=== PATIENT | female | born 1985 | race Asian ===

== ENCOUNTER 2023-05-06 13:10 | Observation (INO) | payer BC, SELFPAY ==
[2023-05-06] VITALS (11 sets, daily range): BP systolic 96–120; BP diastolic 53–71; PULSE 87–116; RESP 16–20; TEMP 37–38.6; O2SAT 98–100; BMI 26.3
--- NOTE | 2023-05-06 13:42 | ED_ITS ---
HPI - General Adult General Chief complaint: Urogenital-Female Stated complaint: needs antibiotics IV, sent by provider Time Seen by Provider: 05/06/23 13:15 Source: patient Mode of arrival: Family Vehicle History of Present Illness HPI narrative: 38-year-old female former smoker without chronic medical history presents at the request of an outside urgent care for evaluation of UTI with sepsis. She had presented to them yesterday with fever, chills, back pain and a few days of urinary complaints including dysuria, frequency and urgency. She was found to have a UTI and was given a single dose of Rocephin intramuscular and given a p rescription for Cipro and has taken now 3 doses of the Cipro. She continues to be febrile with chills and presented again to the same clinic. Soon after their initial evaluation she was referred here for further evaluation. She denies dizziness, weakness, or lightheadedness. She Related Data Allergies Allergy/AdvReac Type Severity Reaction Status Date / Time No Known Drug Allergies Allergy Verified 05/06/23 13:44 Review of Systems Review of Systems Narrative: GENERAL: See HPI HEENT: Denies sinus pain, ear pain, sore throat, difficulty swallowing, dizziness. RESPIRATORY: Denies dyspnea, cough, wheezing, hemoptysis, sputum. CARDIOVASCULAR: Denies chest pain, palpitations, orthopnea, edema, GASTROINTESTINAL: Denies nausea, vomiting, abdominal pain, diarrhea, constipation, melena. : See HPI MUSCULOSKELETAL: denies weakness, joint pain, or bony pain SKIN: Denies rash, skin lesions, or other NEUROLOGIC: Denies weakness, headache, numbness, change in speech, confusion, seizures, incoordination. PSYCHIATRIC: No concerning psychosocial issues. 12 point review of systems is negative except for those stated above Patient History Social History Smoking Status: Former smoker Smoking Status: Former smoker tobacco type: cigarettes and vaping Substance Use Type: does not use Exam Narrative Exam Narrative: GENERAL: 37[] year old patient appears stated age. Well-developed patient, in mild distress. Appears unwell HEAD: Atraumatic. Normocephalic. EYES: Pupils equal round and reactive. Extraocular motions intact. No scleral icterus. No injection or drainage. ENT: Nose without bleeding, purulent drainage. Throat without erythema, tonsillar hypertrophy or exudate. Airway patent. NECK: Trachea midline. Non tender CARDIOVASCULAR: Tachycardic but regular rhythm without murmurs, gallops, or rubs. RESPIRATORY: Clear to auscultation. Breath sounds equal bilaterally. No wheezes, rales, or rhonchi. GASTROINTESTINAL: Abdomen soft, non-tender, nondistended. Specifically no epigastric or right upper quadrant pain EXTREMITIES: No edema or joint tenderness. BACK: Nontender without deformity or crepitance. Right CVA tenderness. NEURO: AOx3. SKIN: No rash or erythema of visible areas Initial Vital Signs Initial Vital Signs: Vital Signs Temperature 101.5 F H 05/06/23 13:20 Pulse Rate 116 H 05/06/23 13:20 Respiratory Rate 20 05/06/23 13:20 Blood Pressure 120/65 05/06/23 13:20 Pulse Oximetry 100 05/06/23 13:20 Oxygen Delivery Method Room Air 05/06/23 13:20 Course Orders Ordered: ED Orders 05/06/23 13:46 Urine Microscopic Stat 05/06/23 14:02 Complete Blood Count AUTO DIFF Stat Comprehensive Metabolic Panel Stat Lactate (Lactic Acid) Stat Magnesium Stat Procalcitonin Stat 05/06/23 14:07 Blood Culture Stat 05/06/23 14:21 COVID19 -Nasal RAPID Stat 05/06/23 14:49 US abdomen limited Stat 05/06/23 15:14 CT kidney ureter bladder (KUB) Stat POTASSIUM CHLORIDE IN WATER (Potassium Cl 10 Meq/100 Ml Meenakshi) 10 meq in 100 mls @ 100 mls/hr IV Q1H COUNTS INCLUDE 234 BEDS AT THE [facility] Stop: 05/06/23 18:59 Last Admin: 05/06/23 16:10 Dose: 100 mls/hr Documented By: Infusion: 05/06/23 16:03 Dose: 100 mls/hr Documented By: Admin: 05/06/23 15:03 Dose: 100 mls/hr Documented By: ST Discontinued Medications Ceftriaxone Sodium 2,000 mg/ (Sodium Chloride) 100 mls @ 200 mls/hr IV NOW ONE Stop: 05/06/23 13:18 Last Infusion: 05/06/23 16:38 Dose: 0 mls/hr Documented By: Admin: 05/06/23 15:56 Dose: 200 mls/hr Documented By: ST Sodium Chloride (Normal Saline 0.9%) 1,959.51 mls @ 653.17 mls/hr 30 ml/kg infuse over 3 hr (1959.51 ml) IV NOW ONE Stop: 05/06/23 16:41 Last Admin: 05/06/23 14:11 Dose: 653.17 mls/hr Documented By: Ondansetron HCl (Ondansetron 4 Mg/2 Ml Inj) 4 mg IV NOW ONE Stop: 05/06/23 14:31 Last Admin: 05/06/23 15:01 Dose: 4 mg Documented By: Consultations Consultation #1: Hospitalist happy to accept Vital Signs Vital signs: Vital Signs - 8 hr 05/06/23 13:20 05/06/23 16:04 05/06/23 16:04 Temperature 101.5 F H Pulse Rate 116 H 102 H Respiratory Rate 20 Blood Pressure 120/65 110/67 Pulse Oximetry 100 98 Oxygen Delivery Method Room Air 05/06/23 14:30 05/06/23 15:00 05/06/23 15:30 Temperature Pulse Rate 105 H 98 H 100 H Respiratory Rate 16 16 16 Blood Pressure 101/53 L 96/55 L 100/55 L Pulse Oximetry 98 Oxygen Delivery Method Room Air Room Air Room Air 05/06/23 16:05 05/06/23 16:30 05/06/23 16:30 Temperature Pulse Rate 101 H 97 H Respiratory Rate Blood Pressure 110/67 104/64 Pulse Oximetry 98 Oxygen Delivery Method Room Air Medical Decision Making Lab Data 05/06/23 14:02 05/06/23 14:02 Labs: Lab Results 05/06/23 05/06/23 05/06/23 Range/Units 13:46 14:02 14:02 WBC 15.0 H (4.5-11.0) X10^3/uL RBC 3.97 L (4.0-5.2) X10^6/uL Hgb 11.5 L (12.0-16.0) g/dL Hct 34.3 L (36-46) % MCV 86.3 (80-100) fL MCH 28.9 (26-34) PG MCHC 33.5 (30-36) % RDW 12.9 (11.6-14.8) % Plt Count 258 (150-400) X10^3/uL Neut % (Auto) 80.4 H (50-75) % Lymph % (Auto) 11.4 L (25-40) % [place] % (Auto) 8.0 (3-14) % Eos % (Auto) 0.0 L (2-4) % Baso % (Auto) 0.2 (0-2) % Neut # (Auto) 78839 H (2548-7426) /uL Lymph # (Auto) 1700 (5046-8335) /uL [place] # (Auto) 1200 H (0-900) /uL Eos # (Auto) 0 (0-450) /uL Baso # (Auto) 0 (0-100) /uL Sodium 134 L (137-145) mmol/L Potassium 3.2 L (3.4-5.1) mmol/L Chloride 99 (98-107) mmol/L Carbon Dioxide 25 (22-32) mmol/L BUN 4 L (7-17) mg/dL Creatinine 0.65 (0.52-1.04) mg/dL Estimated GFR > 60 (>60) mL/min BUN/Creatinine Ratio 6.2 (6-22) Glucose 104 H (70-100) mg/dL Lactate (0.7-2.1) mmol/L Calcium 8.4 (8.4-10.2) mg/dL Magnesium 2.0 (1.6-2.3) mg/dL Total Bilirubin 1.0 (0.2-1.3) mg/dL AST 72 H (14-36) IU/L ALT 96 H (<35) IU/L Alkaline Phosphatase 164 H (38-126) U/L Total Protein 8.4 H (6.3-8.2) g/dL Albumin 4.0 (3.5-5.0) g/dL Globulin 4.4 H (1.7-4.1) g/dL Albumin/Globulin Ratio 0.9 L (1.0-2.8) Procalcitonin (<0.5) ng/mL Urine RBC 1-5/hpf (0-5/HPF) Urine WBC 1-5/hpf (0-5/HPF) Ur Squamous Epith Cells 1-5 /hpf (0-5/HPF) Urine Bacteria None seen (None) Ur Culture Indicated? Cult not indicated SARS-CoV-2 (PCR) (Negative) 05/06/23 05/06/23 05/06/23 Range/Units 14:02 14:02 14:21 WBC (4.5-11.0) X10^3/uL RBC (4.0-5.2) X10^6/uL Hgb (12.0-16.0) g/dL Hct (36-46) % MCV (80-100) fL MCH (26-34) PG MCHC (30-36) % RDW (11.6-14.8) % Plt Count (150-400) X10^3/uL Neut % (Auto) (50-75) % Lymph % (Auto) (25-40) % [place] % (Auto) (3-14) % Eos % (Auto) (2-4) % Baso % (Auto) (0-2) % Neut # (Auto) (7318-0519) /uL Lymph # (Auto) (4980-3226) /uL [place] # (Auto) (0-900) /uL Eos # (Auto) (0-450) /uL Baso # (Auto) (0-100) /uL Sodium (137-145) mmol/L Potassium (3.4-5.1) mmol/L Chloride (98-107) mmol/L Carbon Dioxide (22-32) mmol/L BUN (7-17) mg/dL Creatinine (0.52-1.04) mg/dL Estimated GFR (>60) mL/min BUN/Creatinine Ratio (6-22) Glucose (70-100) mg/dL Lactate 0.9 (0.7-2.1) mmol/L Calcium (8.4-10.2) mg/dL Magnesium (1.6-2.3) mg/dL Total Bilirubin (0.2-1.3) mg/dL AST (14-36) IU/L ALT (<35) IU/L Alkaline Phosphatase (38-126) U/L Total Protein (6.3-8.2) g/dL Albumin (3.5-5.0) g/dL Globulin (1.7-4.1) g/dL Albumin/Globulin Ratio (1.0-2.8) Procalcitonin 1.96 H (<0.5) ng/mL Urine RBC (0-5/HPF) Urine WBC (0-5/HPF) Ur Squamous Epith Cells (0-5/HPF) Urine Bacteria (None) Ur Culture Indicated? SARS-CoV-2 (PCR) Negative (Negative) Point of Care Testing Test Results Negative Urine Dip Bedside Urine Glucose Negative Bedside Urine Bilirubin - Negative Bedside Urine Ketone - Negative Urine Specific [employer] 1.000 Bedside Urine Occult Blood ++ Bedside Urine pH 6.5 Bedside Urine Protein - Negative Bedside Urine Urobilinogen - Negative Bedside Urine Nitrite - Negative Bedside Urine Leukocytes - Negative Esterase Point of care testing: Point of Care Testing Test Results Negative Urine Dip Bedside Urine Glucose Negative Bedside Urine Bilirubin - Negative Bedside Urine Ketone - Negative Urine Specific [employer] 1.000 Bedside Urine Occult Blood ++ Bedside Urine pH 6.5 Bedside Urine Protein - Negative Bedside Urine Urobilinogen - Negative Bedside Urine Nitrite - Negative Bedside Urine Leukocytes - Negative Esterase MDM Narrative Medical decision making narrative: 38-year-old female presents with fever, chills, tachycardia and recent urinary symptoms. At an outside facility she was found to have a UTI and has had Rocephin IM and 3 doses of oral Cipro and referred to us for further treatment.SHe arrives meeting septic criteria and has cultures, lactate obtained, IV fluids and rocephin given. Discussed with hospitalist and we agreed to perform imaging to rule out an obstructive uropathy or other finding that would complicate or change the course. Imaging demonstrates evidence of pyelonephritis and no obstruction. Patient requires hospitalization for further treatment and stabilization Discharge Plan Departure Patient Disposition: Admitted As Inpatient Clinical Impression: Sepsis, Pyelonephritis Admit Date/Time: 05/06/23 16:44 Admit Provider: Fredis Saldivar
[2023-05-06] MEDS: SODIUM CHLORIDE 0.9% 653.17 ML IV (14:11)
[2023-05-06 14:14] LABS: Bacteria Urine None Seen; Culture Indicated Urine Cult Not Indicated; RBC Urine 1-5/HPF (0-5/HPF); Squamous Epithelial Cell Urine 1-5 /HPF (0-5/HPF); WBC Urine 1-5/HPF (0-5/HPF)
[2023-05-06 14:20] LABS: Add Manual Diff / Slide Review NO; Basophils Absolute Auto 0 /uL (0-100); Basophils Percent Auto 0.2 % (0-2); Eosinophils Absolute Auto 0 /uL (0-450); Hematocrit 34.3 % (36-46); Hemoglobin 11.5 g/dL (12.0-16.0); Lymphocytes Absolute Auto 1700 /uL (1100-4500); Lymphocytes Percent Auto 11.4 % (25-40); Mean Corpuscular HGB Conc 33.5 % (30-36); Mean Corpuscular Hemoglobin 28.9 PG (26-34); Mean Corpuscular Volume 86.3 fL (80-100); Monocytes Absolute Auto 1200 /uL (0-900); Neutrophils Absolute Auto 12100 /uL (1500-7000); Neutrophils Percent Auto 80.4 % (50-75); Platelet Count 258 X10^3/uL (150-400); Red Blood Cell Count 3.97 X10^6/uL (4.0-5.2); Red Cell Distribution Width 12.9 % (11.6-14.8)
--- NOTE | 2023-05-06 14:30 | PC.NURSE ---
Pt c/o malaise, weakness, nausea, and fever. Denies dysuria, hematuria, flank pain, or other symptoms.
[2023-05-06 14:41] LABS: Lactate (Lactic Acid) 0.9 mmol/L (0.7-2.1)
[2023-05-06 14:42] LABS: Alanine Aminotransferase 96 IU/L (<35); Albumin Globulin Ratio 0.9 (1.0-2.8); Alkaline Phosphatase 164 U/L (38-126); Aspartate Aminotransferase 72 IU/L (14-36); BUN Creatinine Ratio 6.2 (6-22); Blood Urea Nitrogen 4 mg/dL (7-17); Calcium 8.4 mg/dL (8.4-10.2); Carbon Dioxide 25 mmol/L (22-32); Chloride 99 mmol/L (98-107); Estimated Glomerular Filt Rate > 60 mL/min (>60); Globulin 4.4 g/dL (1.7-4.1); Glucose 104 mg/dL (70-100); HEMOLYSIS < 15 (0-50); Potassium 3.2 mmol/L (3.4-5.1); Sodium 134 mmol/L (137-145); Total Protein 8.4 g/dL (6.3-8.2)
[2023-05-06 15:00] LABS: Procalcitonin 1.96 ng/mL (<0.5)
[2023-05-06] MEDS: ONDANSETRON 4 MG/2 ML INJ IV (15:01)
[2023-05-06] MEDS: POTASSIUM CHLORIDE IN WATER 10 MEQ/100 ML PIGGYBACK 100 MEQ IV ×3 (15:03→18:39)
--- NOTE | 2023-05-06 15:14 | DI.CT.S_ITS ---
PROCEDURE: CT KIDNEY URETER BLADDER (KUB) INDICATIONS: urosepsis, flank pain, obstructing stone? TECHNIQUE: Axial sections were acquired from the lung bases to the pubic symphysis. Coronal and sagittal reformats were performed. For radiation dose reduction, the following was used: automated exposure control, adjustment of mA and/or kV according to patient size. COMPARISON: None. FINDINGS: Image quality: Excellent. Lung bases: Unremarkable. Heart: No significant findings. URINARY: Right Kidney: Right-sided perinephric fat stranding is seen. There is mild right-sided hydronephrosis. No nonobstructing right-sided kidney stones are seen. Right Ureter: There is mild right hydroureter. Left Kidney: No stones or hydronephrosis. Left Ureter: No hydroureter. Bladder: Normal wall thickness. No stones. ABDOMEN: Liver: Unremarkable. Gallbladder: Unremarkable. Biliary ducts: Unremarkable. Pancreas: Unremarkable. Spleen: Unremarkable. Adrenal Glands: Unremarkable. Stomach and Bowel: Stomach, small bowel loops, and colon are unremarkable. A normal appendix is noted. Peritoneum: No abnormal intraperitoneal fluid. No free air. Ventral Wall: No hernia. Abdominal Nodes: No enlarged retroperitoneal or mesenteric lymph nodes. Vessels: Aorta and inferior vena cava are normal in size. PELVIS: Pelvic Organs: The uterus appears normal for age. No adnexal masses are seen. The IUD is seen at its expected location. Pelvic Nodes: Unremarkable. Miscellaneous: No inguinal hernias are seen. Bones: Unremarkable. IMPRESSION: Right-sided hydronephrosis and hydroureter, with perinephric fat stranding. No kidney stones or ureteral stones are seen. These imaging findings are highly suspicious for right-sided pyelonephritis. Additional findings: Normal appendix IUD Dictated by: Luis Miguel Tolliver M.D. on 05/06/2023 at 15:18 Approved by: Luis Miguel Tolliver M.D. on 05/06/2023 at 15:20
[2023-05-06] MEDS: cefTRIAXone 2,000 MG in SODIUM CHLORIDE 0.9% 100 ML 200 MG IV (15:56)
[2023-05-06 16:04] LABS: COVID19 -Nasal RAPID Negative (Negative)
--- NOTE | 2023-05-06 17:03 | PC.NURSE ---
Called report to [facility]. Pt A&Ox4 on transfer
[2023-05-06] MEDS: SODIUM CHLORIDE 0.9% 1,000 ML 100 ML IV (18:40)
--- NOTE | 2023-05-06 18:40 | PM.HP.1 ---
History of Present Illness History of Present Illness Date Patient Seen: 05/06/23 Time Patient Seen: 17:30 Chief complaint: needs antibiotics IV, sent by provider Narrative: Melly Marshall is a 38-year-old female with past medical history of anxiety, previous UTIs and former smoker who presents with fevers, right flank pain and dysuria. Patient states her symptoms started about 2 weeks ago and continued to worsen. Was seen in where a UA showed gross pyuria consistent with UTI. Urine cutlure growing >100k GNR. Was given IM dose of rocephin and sent to the ED. Patient found to be septic with leukocytosis, tachycardia, and tachypnea. CT KUB showed right-sided pyelonephritis with perinephric fat stranding and hydronephrosis. No kidney stones. She currently is feeling a bit better with less chills and flank pain. Denies SOB, CP, abd pain or diarrhea. [facility] Social History household members: family Smoking Status: Former smoker alcohol intake: never Meds Home Medications and Allergies Allergies Allergy/AdvReac Type Severity Reaction Status Date / Time No Known Drug Allergies Allergy Verified 05/06/23 13:44 Review of Systems Review of Systems Narrative: All other systems reviewed with the patient and are negative unless otherwise stated. Exam Vital Signs (past 8 hours): - 05/06/23 13:20 05/06/23 16:04 05/06/23 16:04 Temperature 101.5 F H Pulse Rate 116 H 102 H Respiratory Rate 20 Blood Pressure 120/65 110/67 Pulse Oximetry 100 98 Oxygen Delivery Method Room Air Oxygen Flow Rate 05/06/23 14:30 05/06/23 15:00 05/06/23 15:30 Temperature Pulse Rate 105 H 98 H 100 H Respiratory Rate 16 16 16 Blood Pressure 101/53 L 96/55 L 100/55 L Pulse Oximetry 98 Oxygen Delivery Method Room Air Room Air Room Air Oxygen Flow Rate 05/06/23 16:05 05/06/23 16:30 05/06/23 16:30 Temperature Pulse Rate 101 H 97 H Respiratory Rate Blood Pressure 110/67 104/64 Pulse Oximetry 98 Oxygen Delivery Method Room Air Oxygen Flow Rate 05/06/23 17:00 05/06/23 17:00 05/06/23 17:11 Temperature 101.0 F H Pulse Rate 96 H Respiratory Rate 16 Blood Pressure 107/71 Pulse Oximetry 99 Oxygen Delivery Method Oxygen Flow Rate 05/06/23 17:12 Temperature 99.3 F Pulse Rate 100 H Respiratory Rate 18 Blood Pressure 107/69 Pulse Oximetry 99 Oxygen Delivery Method Oxygen Flow Rate 0 Oxygen Delivery Method Room Air Oxygen Flow Rate 0 Narrative Exam Narrative: GEN: ill-appearing female in no acute distress HEENT: moist mucous membranes, PERRL NECK: trachea midline, no JVD CV: tachycardic, regular rhythm, no murmurs PULM: clear bilaterally ABD: right-sided flank pain, abd non-tender, nondistended, no organomegaly EXT: warm and well perfused with no edema NEURO: awake, alert, oriented, no focal deficits Objective Labs 05/06/23 14:02 05/06/23 14:02 Labs: Laboratory Results - last 24 hr 05/06/23 05/06/23 05/06/23 13:46 14:02 14:02 WBC 15.0 H RBC 3.97 L Hgb 11.5 L Hct 34.3 L MCV 86.3 MCH 28.9 MCHC 33.5 RDW 12.9 Plt Count 258 Neut % (Auto) 80.4 H Lymph % (Auto) 11.4 L [place] % (Auto) 8.0 Eos % (Auto) 0.0 L Baso % (Auto) 0.2 Neut # (Auto) 29875 H Lymph # (Auto) 1700 [place] # (Auto) 1200 H Eos # (Auto) 0 Baso # (Auto) 0 Sodium 134 L Potassium 3.2 L Chloride 99 Carbon Dioxide 25 BUN 4 L Creatinine 0.65 Estimated GFR > 60 BUN/Creatinine Ratio 6.2 Glucose 104 H Lactate Calcium 8.4 Magnesium 2.0 Total Bilirubin 1.0 AST 72 H ALT 96 H Alkaline Phosphatase 164 H Total Protein 8.4 H Albumin 4.0 Globulin 4.4 H Albumin/Globulin Ratio 0.9 L Procalcitonin Urine RBC 1-5/hpf Urine WBC 1-5/hpf Ur Squamous Epith Cells 1-5 /hpf Urine Bacteria None seen Ur Culture Indicated? Cult not indicated SARS-CoV-2 (PCR) 05/06/23 05/06/23 05/06/23 14:02 14:02 14:21 WBC RBC Hgb Hct MCV MCH MCHC RDW Plt Count Neut % (Auto) Lymph % (Auto) [place] % (Auto) Eos % (Auto) Baso % (Auto) Neut # (Auto) Lymph # (Auto) [place] # (Auto) Eos # (Auto) Baso # (Auto) Sodium Potassium Chloride Carbon Dioxide BUN Creatinine Estimated GFR BUN/Creatinine Ratio Glucose Lactate 0.9 Calcium Magnesium Total Bilirubin AST ALT Alkaline Phosphatase Total Protein Albumin Globulin Albumin/Globulin Ratio Procalcitonin 1.96 H Urine RBC Urine WBC Ur Squamous Epith Cells Urine Bacteria Ur Culture Indicated? SARS-CoV-2 (PCR) Negative Assessment & Plan Assessment & Plan narrative: # sepsis secondary to acute pyelonephritis -presented with R flank pain, fevers, leukocytosis, tachycardia and tachypnea, source urine -CT KUB with R perinephric stranding and hydro -UA confirmed UTI at urgent care, culture growing >100k GNR, likely E coli -continue 2 g Rocephin daily -control as needed -follow-up final urine cultures at urgent care -plan to treat with antibiotics for at least 10 days # anxiety -not on medications Code status is full code. DVT prophylaxis with SCDs. Proxy is . I have reviewed home meds and used all available resources to reconcile the home meds. Case discussed with ED physician/APC and patient will be admitted to the hospitalist service for further workup and management. This patient will be admitted as inpatient and will require greater than 2 midnights of hospital time to treat sepsis and pyelonephritis.
--- NOTE | 2023-05-06 20:07 | PC.NURSE ---
pt c\o of iv potassium hurting and requesting to take it p. she is also requesting ivf to be discontinue if possible. 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 Orders received to discontinue IV fluids and IV potassium.
[2023-05-06] MEDS: SODIUM CHLORIDE 0.9% FLUSH 10 ML IV (21:55)
[2023-05-07 00:34] VITALS: BP 101/62; PULSE 97; RESP 18; TEMP 37.7; O2SAT 97
[2023-05-07 00:39] VITALS: TEMP 37.7
[2023-05-07] MEDS: ACETAMINOPHEN 325 MG TABLET 650 MG PO (00:39)
[2023-05-07 01:41] VITALS: TEMP 37.1
[2023-05-07 06:14] VITALS: BP 109/60; PULSE 77; RESP 16; TEMP 36.6; O2SAT 99
[2023-05-07 06:43] LABS: Add Manual Diff / Slide Review NO; Basophils Absolute Auto 0 /uL (0-100); Basophils Percent Auto 0.2 % (0-2); Eosinophils Absolute Auto 0 /uL (0-450); Eosinophils Percent Auto 0.4 % (2-4); Hematocrit 31.3 % (36-46); Hemoglobin 10.4 g/dL (12.0-16.0); Lymphocytes Absolute Auto 2400 /uL (1100-4500); Mean Corpuscular HGB Conc 33.3 % (30-36); Mean Corpuscular Hemoglobin 28.6 PG (26-34); Mean Corpuscular Volume 85.9 fL (80-100); Monocytes Absolute Auto 900 /uL (0-900); Neutrophils Absolute Auto 6600 /uL (1500-7000); Neutrophils Percent Auto 66.4 % (50-75); Platelet Count 252 X10^3/uL (150-400); Red Blood Cell Count 3.65 X10^6/uL (4.0-5.2); Red Cell Distribution Width 13.3 % (11.6-14.8)
[2023-05-07 06:52] LABS: BUN Creatinine Ratio 7.8 (6-22); Blood Urea Nitrogen 4 mg/dL (7-17); Calcium 7.8 mg/dL (8.4-10.2); Carbon Dioxide 22 mmol/L (22-32); Chloride 108 mmol/L (98-107); Estimated Glomerular Filt Rate > 60 mL/min (>60); Glucose 92 mg/dL (70-100); HEMOLYSIS < 15 (0-50); Potassium 3.5 mmol/L (3.4-5.1); Sodium 140 mmol/L (137-145)
[2023-05-07 07:08] LABS: Procalcitonin 1.31 ng/mL (<0.5)
[2023-05-07] MEDS: POTASSIUM CHLORIDE 20 MEQ TAB 40 MEQ PO (08:03)
[2023-05-07] MEDS: SODIUM CHLORIDE 0.9% FLUSH 10 ML IV (08:04)
[2023-05-07] MEDS: cefTRIAXone 2,000 MG in SODIUM CHLORIDE 0.9% 100 ML 200 MG IV (08:06)
[2023-05-07 09:10] VITALS: BP 101/64; PULSE 81; RESP 15; TEMP 36.2; O2SAT 100
--- NOTE | 2023-05-07 14:17 | P.DS_ITS ---
History of Present Illness History of Present Illness Date Patient Seen: 05/06/23 Time Patient Seen: 17:30 Chief complaint: needs antibiotics IV, sent by provider Narrative: Melly Marshall is a 38-year-old female with past medical history of anxiety, previous UTIs and former smoker who presents with fevers, right flank pain and dysuria. Patient states her symptoms started about 2 weeks ago and continued to worsen. Was seen in where a UA showed gross pyuria consistent with UTI. Urine cutlure growing >100k GNR. Was given IM dose of rocephin and sent to the ED. Patient found to be septic with leukocytosis, tachycardia, and tachypnea. CT KUB showed right-sided pyelonephritis with perinephric fat stranding and hydronephrosis. No kidney stones. She currently is feeling a bit better with less chills and flank pain. Denies SOB, CP, abd pain or diarrhea. Discharge Providers Provider Date of admission: 05/06/23 16:44 Discharge Date: 05/07/23 Discharge provider: Fredis Saldivar DO Summary Hospital Course Discharge Diagnosis: # sepsis secondary to acute pyelonephritis -presented with R flank pain, fevers, leukocytosis, tachycardia and tachypnea, source urine -CT KUB with R perinephric stranding and hydro -UA confirmed UTI at urgent care, culture growing >100k pansensitive E. coli -continue 2 g Rocephin daily -control as needed -blood cultures negative -finished 3 days of IV abx, discharged on 1 more week of po cipro # anxiety -not on medications Hospital Course: Admitted for sepsis 2/2 pyelo. Urine cultures grew pansensitive E. coli and blood cultures were negative. Recieved 3 days of IV rocephin and sepsis resolved. Discharged on 1 more week of po cipro. Time Spent with Patient Time spent: Greater than 30 minutes Exam Vital Signs (past 8 hours): - 05/07/23 09:10 Temperature 97.2 F L Pulse Rate 81 Respiratory Rate 15 Blood Pressure 101/64 Pulse Oximetry 100 Oxygen Flow Rate 0 Oxygen Delivery Method Room Air Oxygen Flow Rate 0 Narrative Exam Narrative: GEN: no acute distress HEENT: moist mucous membranes, PERRL NECK: trachea midline, no JVD CV: tachycardic, regular rhythm, no murmurs PULM: clear bilaterally ABD: right-sided flank pain, abd non-tender, nondistended, no organomegaly EXT: warm and well perfused with no edema NEURO: awake, alert, oriented, no focal deficits Objective Labs 05/07/23 06:26 05/07/23 06:26 Labs: Laboratory Results - last 24 hr 05/06/23 05/06/23 05/06/23 14:02 14:02 14:02 WBC 15.0 H RBC 3.97 L Hgb 11.5 L Hct 34.3 L MCV 86.3 MCH 28.9 MCHC 33.5 RDW 12.9 Plt Count 258 Neut % (Auto) 80.4 H Lymph % (Auto) 11.4 L [place] % (Auto) 8.0 Eos % (Auto) 0.0 L Baso % (Auto) 0.2 Neut # (Auto) 04920 H Lymph # (Auto) 1700 [place] # (Auto) 1200 H Eos # (Auto) 0 Baso # (Auto) 0 Sodium 134 L Potassium 3.2 L Chloride 99 Carbon Dioxide 25 BUN 4 L Creatinine 0.65 Estimated GFR > 60 BUN/Creatinine Ratio 6.2 Glucose 104 H Lactate 0.9 Calcium 8.4 Magnesium 2.0 Total Bilirubin 1.0 AST 72 H ALT 96 H Alkaline Phosphatase 164 H Total Protein 8.4 H Albumin 4.0 Globulin 4.4 H Albumin/Globulin Ratio 0.9 L Procalcitonin SARS-CoV-2 (PCR) 05/06/23 05/06/23 05/07/23 14:02 14:21 06:26 WBC RBC Hgb Hct MCV MCH MCHC RDW Plt Count Neut % (Auto) Lymph % (Auto) [place] % (Auto) Eos % (Auto) Baso % (Auto) Neut # (Auto) Lymph # (Auto) [place] # (Auto) Eos # (Auto) Baso # (Auto) Sodium Potassium Chloride Carbon Dioxide BUN Creatinine Estimated GFR BUN/Creatinine Ratio Glucose Lactate Calcium Magnesium Total Bilirubin AST ALT Alkaline Phosphatase Total Protein Albumin Globulin Albumin/Globulin Ratio Procalcitonin 1.96 H 1.31 H SARS-CoV-2 (PCR) Negative 05/07/23 05/07/23 06:26 06:26 WBC 10.0 RBC 3.65 L Hgb 10.4 L Hct 31.3 L MCV 85.9 MCH 28.6 MCHC 33.3 RDW 13.3 Plt Count 252 Neut % (Auto) 66.4 Lymph % (Auto) 24.0 L [place] % (Auto) 9.0 Eos % (Auto) 0.4 L Baso % (Auto) 0.2 Neut # (Auto) 6600 Lymph # (Auto) 2400 [place] # (Auto) 900 Eos # (Auto) 0 Baso # (Auto) 0 Sodium 140 Potassium 3.5 Chloride 108 H Carbon Dioxide 22 BUN 4 L Creatinine 0.51 L Estimated GFR > 60 BUN/Creatinine Ratio 7.8 Glucose 92 Lactate Calcium 7.8 L Magnesium Total Bilirubin AST ALT Alkaline Phosphatase Total Protein Albumin Globulin Albumin/Globulin Ratio Procalcitonin SARS-CoV-2 (PCR) [facility] Social History household members: family Smoking Status: Former smoker alcohol intake: never Discharge Plan Discharge Plan Patient Disposition: Home Provider Discharge Comment: You were diagnosed with pyelonephritis, or kidney infection from a bad UTI. This improved with IV antibiotics. Please complete 7 more days of oral cipro, and you may save 3 days if it for the future if you get a UTI again. Visit Report/Discharge Packet Instructions: DI for Kidney Infection Stand Alone Forms: Patient Portal/API, Stroke Signs & Symptoms Discharge Data Attending Provider: Fredis Saldivar Admit Date/Time: 05/06/23 16:44 Discharges patient from system. Discharge Date/Time: 05/07/23 17:02
--- NOTE | 2023-05-07 15:34 | CM.DANOTE ---
Patient is a 38 yo female who was admitted on 05/06/23 for IV Abx. Pt has [employer] for insurance and her PCP is not listed. EMR was reviewed. Per MD, pt with a hx of UTIs and admitted for pyelonephritis and IV-Abx. Pt's cultures returned and pt medically stable to d/c home today after final IV-Abx dose and ongoing PO abx at discharge. Per Rn, pt is independent in room and no concerns noted. 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 Pt independent and active at baseline and drives and does not anticipate any needs at d/c. Pt states her spouse is available for assist if needed. Plan: Patient to d/c home today with oral abx and outpt f/u and no further SW needs at this time. HOMERO Cannon Discharge Planning/Care Management CM Discharge Assessment Start: 05/07/23 15:31 Freq: Status: Active Protocol: Document 05/07/23 15:31 BF (Rec: 05/07/23 15:34 BF [id number]) Discharge Planning Assessment Assigned Acid Strength Inspector HOMERO Rand DPOA/Assigned Designee Name informally spouse Advance Directives? No Advance Directives on File No History Provided By Patient,Medical Record Has Patient been admitted in last 30 No days? Prior Living Arrangements House Household Members family Type of transporation used prior to Drives own vehicle admit Independent with ADL's Yes Is patient alert and oriented? Yes Barriers to Discharge No Discharge Plan Home Transportation Arrangement family Referrals Initiated None needed Whiteboard Updated in Patient Room with Yes name and ext. # of Acid Strength Inspector Review Status In Process Please Provide Date Initial DC 05/07/23 Assessment Was Performed Next Review Type Continued Stay Review
== END 2023-05-07 17:02 | disposition home or self-care (01) ==
LOC: ED 13:40 → AC 16:47
PROVIDERS: Admitting Provider Student in an Organized Health Care Education/Training Program; Emergency Provider Emergency Medicine; Referring Provider Emergency Medicine; Visit Provider Student in an Organized Health Care Education/Training Program
DX: N10 Acute pyelonephritis (principal); A41.9 Sepsis, unspecified organism; F41.9 Anxiety disorder, unspecified; Z20.822 Contact with and (suspected) exposure to COVID-19
CPT/HCPCS: 36415; 74176; 80048; 80053; 81003; 81015; 81025; 83605; 83735; 84145; 85025; 87040; 87635; 96365; 96366; 96375; 99284; C9803; G0378; J0696; J2405